=== PATIENT | male | born 1990 | race Asian ===

== ENCOUNTER 2019-11-03 11:37 | Emergency (ER) | payer OTHER ==
[~2019-11-03] VITALS: Ht 177.8 cm; Wt 99.8 kg
[2019-11-03 11:46] VITALS: TEMP 98.7
[2019-11-03 15:01] LABS: PLATELET COUNT 220 K/uL (142-355)
[2019-11-03 15:06] LABS: POTASSIUM 3.8 mmol/L (3.6-5.2)
[2019-11-03 16:18] VITALS: BP 120/73
== END 2019-11-03 16:18 | disposition home or self-care (01) ==
LOC: ED 11:37
PROVIDERS: Family Medicine
DX: K29.70 Gastritis, unspecified, without bleeding (principal); R10.84 Generalized abdominal pain
CPT/HCPCS: 80053; 81000; 82150; 83690; 85027; 99283